=== PATIENT | female | born 1965 | race Caucasian/White ===

== ENCOUNTER → 2018-02-10 13:08 | Outpatient (REF) | payer BC, SELFPAY ==
[2018-02-10 13:44] LABS: Cholesterol 265 mg/dL (50-200); Glucose 93 mg/dL (70-100); HDL Cholesterol 36 mg/dL (40-60); LDL CHOLESTEROL 200 mg/dL (<100); Triglyceride 187 mg/dL (30-150)
== END ==
LOC: NCHCN 13:08
PROVIDERS: Visit Provider Family Medicine
DX: Z00.00 Encounter for general adult medical examination without abnormal findings (principal); Z13.1 Encounter for screening for diabetes mellitus; Z13.220 Encounter for screening for lipoid disorders
CPT/HCPCS: 80061; 82947; 83721

== ENCOUNTER → 2018-02-17 11:39 | Outpatient (REF) | payer BC, SELFPAY ==
--- NOTE | 2018-02-17 10:30 | PAPFT_PTH ---
PAT[facility]: [facility]ait [facility]ccauley [id number] AGE/SX: 60/F ROOM: RE02/17/[address]: Haley Enrique : 1965 BED: DIS: SPEC #: [id number] RECD: 02/17/18 12:54 STATUS: CAMILLA REAleshia #: [id number] EVY: 02/17/18 10:[address]: Haley Enrique DEPT: [facility] Cytology RECD BY: Zina Ferro ENTERED: 02/17/18 12:54 SP TYPE: PAPFT OTHR DR: Gabriela Lincoln Tissues: 1 - CX/ENDOCX FOR PAP SMEARS Procedures: PAP THIN PREP/[facility] Screening HPV DNA PROBE Comments: [id number] (CHLAMYDIA GC)
[2018-02-20 14:28] LABS: Chlamydia Result Negative; GC Result Negative; Specimen Description SEE COMMENTS
== END ==
LOC: NCHCN 11:39
PROVIDERS: Visit Provider Family Medicine
DX: Z00.00 Encounter for general adult medical examination without abnormal findings (principal); Z11.3 Encounter for screening for infections with a predominantly sexual mode of transmission; Z12.4 Encounter for screening for malignant neoplasm of cervix; Z11.51 Encounter for screening for human papillomavirus (HPV); Z01.419 Encounter for gynecological examination (general) (routine) without abnormal findings
CPT/HCPCS: 87491; 87591; 88142; 87624

== ENCOUNTER 2019-07-16 12:52 | Outpatient (REF) | payer BC, SELFPAY ==
[2019-07-16 14:15] LABS: Calculated LDL 120 mg/dL; Cholesterol 185 mg/dL (<200); HDL Cholesterol 39 mg/dL (40-60); Triglyceride 131 mg/dL (<150)
== END 2019-07-16 13:12 ==
LOC: NCHCN 12:52
PROVIDERS: PCP Family Medicine; Visit Provider Family Medicine
DX: Z00.00 Encounter for general adult medical examination without abnormal findings (principal); I10 Essential (primary) hypertension; E78.5 Hyperlipidemia, unspecified
CPT/HCPCS: 80061

== ENCOUNTER 2020-03-24 08:10 | Outpatient (REF) | payer OTHER, SELFPAY ==
[2020-03-24 22:14] LABS: ALT 38 U/L (14-59); AST 19 U/L (15-37); Albumin 4.3 g/dL (3.4-5.0); Alkaline Phosphatase 81 U/L (46-116); Anion Gap 10.9 mmol/L (3-11); BUN 19 mg/dL (7-18); Bilirubin, Total 0.4 mg/dL (0.2-1.0); CO2 25.1 mmol/L (21.0-32.0); CREATININE 0.95 mg/dL (0.55-1.02); Calcium 9.3 mg/dL (8.5-10.1); Calculated LDL 137 mg/dL (<100); Chloride 102 mmol/L (98-107); Cholesterol 204 mg/dL (<200); Glucose 118 mg/dL (74-106); HDL Cholesterol 40 mg/dL (40-60); Potassium 4.1 mmol/L (3.5-5.1); Sodium 138 mmol/L (136-145); Triglyceride 137 mg/dL (<150)
== END 2020-03-24 08:30 ==
LOC: NCHCN 08:10
PROVIDERS: PCP Family Medicine; Visit Provider Family Medicine
DX: Z00.00 Encounter for general adult medical examination without abnormal findings (principal); I10 Essential (primary) hypertension; E78.5 Hyperlipidemia, unspecified
CPT/HCPCS: 80053; 80061

== ENCOUNTER 2020-05-12 18:51 | Outpatient (REF) | payer OTHER, SELFPAY ==
[2020-05-12 21:44] LABS: Hemoglobin A1C 5.7 % (<5.7)
== END 2020-05-12 19:11 ==
LOC: NCHCN 18:51
PROVIDERS: PCP Family Medicine; Visit Provider Family Medicine
DX: Z00.00 Encounter for general adult medical examination without abnormal findings (principal)
CPT/HCPCS: 83036

== ENCOUNTER 2022-01-08 10:48 | Outpatient (REF) | payer OTHER, SELFPAY ==
[2022-01-08 16:38] LABS: ALT 48 U/L (14-59); AST 29 U/L (15-37); Albumin 4.1 g/dL (3.4-5.0); Alkaline Phosphatase 79 U/L (46-116); Anion Gap 6.8 mmol/L (3-11); BUN 16 mg/dL (7-18); Bilirubin, Total 0.4 mg/dL (0.2-1.0); CO2 27.2 mmol/L (21.0-32.0); CREATININE 0.9 mg/dL (0.55-1.02); Calcium 9.1 mg/dL (8.5-10.1); Calculated LDL 112 mg/dL (<100); Chloride 102 mmol/L (98-107); Cholesterol 194 mg/dL (<200); Glucose 121 mg/dL (74-106); HDL Cholesterol 39 mg/dL (40-60); Potassium 4.3 mmol/L (3.5-5.1); Sodium 136 mmol/L (136-145); Total Protein 8.1 g/dL (6.4-8.2); Triglyceride 215 mg/dL (<150)
== END 2022-01-08 10:49 | disposition home or self-care (01) ==
LOC: NCHCN 10:48
PROVIDERS: PCP Family Medicine; Visit Provider Family Medicine
DX: Z00.00 Encounter for general adult medical examination without abnormal findings (principal); E78.5 Hyperlipidemia, unspecified; I10 Essential (primary) hypertension; R73.03 Prediabetes
CPT/HCPCS: 80053; 80061